=== PATIENT | female | born 1985 | race African-American/Black ===

== ENCOUNTER 2020-11-03 23:51 | Emergency (ER) | payer OTHER ==
[~2020-11-03] VITALS: Ht 165.1 cm; Wt 81.7 kg
[2020-11-03] MEDS ORDERED: PROZAC20 M1 PO (23:59)
[2020-11-04] MEDS ORDERED: PROZAC20 MG PO
[2020-11-04 00:49] VITALS: BP 124/77
== END 2020-11-04 00:50 | disposition home or self-care (01) ==
LOC: ER 23:51
DX: S01.01XA Laceration without foreign body of scalp, initial encounter (principal); Z79.899 Other long term (current) drug therapy; Z88.6 Allergy status to analgesic agent; Z88.5 Allergy status to narcotic agent; W22.8XXA Striking against or struck by other objects, initial encounter; Y93.89 Activity, other specified; Y92.098 Other place in other non-institutional residence as the place of occurrence of the external cause; Y99.8 Other external cause status

== ENCOUNTER 2020-11-12 20:57 | Emergency (ER) | payer OTHER ==
[~2020-11-12] VITALS: Ht 165.1 cm; Wt 81.7 kg
[~2020-11-12 20:57] MED LIST: PROZAC20 M1 PO; PROZAC20 MG PO
[2020-11-12 21:09] VITALS: BP 121/62
== END 2020-11-12 21:30 | disposition home or self-care (01) ==
LOC: ER 20:57
DX: S01.01XD Laceration without foreign body of scalp, subsequent encounter (principal); Z79.899 Other long term (current) drug therapy; Z88.6 Allergy status to analgesic agent; Z88.5 Allergy status to narcotic agent; X58.XXXD Exposure to other specified factors, subsequent encounter